=== PATIENT | female | born 1965 | race Caucasian/White ===

== ENCOUNTER 2025-10-25 21:32 | Emergency (ER) | payer SELFPAY ==
[~2025-10-25] VITALS: Ht 165.1 cm; Wt 81.8 kg
[2025-10-25 21:47] VITALS: TEMP 98.2
[2025-10-26 02:31] LABS: PLATELET COUNT (AUTO) 221 K/uL (150-450); RED BLOOD CELL COUNT(AUTO) 4.80 MIL/uL (4.00-5.20); RED CELL DISTRIBUTION WIDTH 12.5 % (11.5-14.5); WHITE BLOOD COUNT (AUTO) 8.8 K/uL (4.5-11.0)
[2025-10-26 02:42] LABS: CALCIUM, TOTAL 9.4 mg/dL (8.8-10.5); CREATININE 0.78 mg/dL (0.60-1.30); GLOMERULAR FILTR. RATE CALC > 60 mL/min (>60); GLUCOSE,RANDOM 122 mg/dL (70-110); SODIUM SERUM 140 mmol/L (136-145); UREA NITROGEN, BLOOD 10 mg/dL (7-18)
[2025-10-26 02:51] LABS: TROPONIN I-HIGH SENSITIVITY 7 ng/L (<51)
[2025-10-26] MEDS ORDERED: AMLO-257 PO (03:04)
[2025-10-26 03:27] VITALS: BP 128/67; PULSE 63; RESP 16; O2SAT 96
== END 2025-10-26 03:30 | disposition home or self-care (01) ==
LOC: EMS 21:46
DX: I10 Essential (primary) hypertension (principal); R51.9 Headache, unspecified; Z98.890 Other specified postprocedural states
CPT/HCPCS: 71045; 80048; 83880; 84484; 85025; 93005; 99285; 36415-L1; 36415-TC